=== PATIENT | male | born 2000 ===

== ENCOUNTER 2024-10-20 19:57 | Emergency (ER) | payer OTHER, BC ==
[~2024-10-20] VITALS: Ht 182.9 cm; Wt 70.3 kg
[2024-10-20] MEDS ORDERED: IBUP800 PO (21:53)
== END 2024-10-20 22:01 | disposition home or self-care (01) ==
LOC: ER 19:57
DX: M54.50 Low back pain, unspecified (principal)
CPT/HCPCS: 72192